=== PATIENT | male | born 1935 | race African-American/Black ===

== ENCOUNTER 2019-12-08 07:53 | Inpatient (IN) | payer MEDICARE ==
[~2019-12-08] VITALS: Ht 185.4 cm; Wt 81.6 kg
[2019-12-08 09:43] LABS: HEMATOCRIT. 33.1 % (42.0-52.0); HEMOGLOBIN. 11.4 g/dL (14.0-18.0); MEAN CORPUSCULAR HEMOGLOBIN 30.9 pg (28.0-32.0); MEAN CORPUSCULAR VOLUME 89.6 fL (80.0-94.0); PLATELET 168 x1000/uL (130-400); RED BLOOD CELL COUNT 3.69 mill/uL (4.7-6.1); RED CELL DISTRIBUTION WIDTH 15.6 % (11.6-14.6)
[2019-12-08 09:48] LABS: CHLORIDE 114 mEq/L (98-107)
[2019-12-08 09:50] LABS: INR 1.1; PROTHROMBIN TIME 12.2 sec (9.6-11.0)
[2019-12-08] MEDS ORDERED: ONDANSETRON HCL 4MG/2ML INJ IV ONE (10:00)
[2019-12-08] MEDS ORDERED: MORPHINE SULFATE 2 MG/ML CPJ (NOT FOR IM USE) IV ONE (10:00)
[2019-12-08 10:23] LABS: PLATELET ESTIMATE NORMAL
[2019-12-08 12:14] LABS: CLARITY URINE CLEAR (CLEAR); COLOR URINE YELLOW (YELLOW); KETONES URINE NEGATIVE (NEGATIVE); LEUKOCYTE ESTERASE URINE NEGATIVE (NEGATIVE); NITRITE URINE NEGATIVE (NEGATIVE); OCCULT BLOOD URINE 1+ (NEGATIVE); PROTEIN URINE 2+ (NEGATIVE); SPECIFIC GRAVITY URINE 1.016 (1.005-1.030)
[2019-12-08] MEDS: MORPHINE SULFATE 2 MG/ML CPJ (NOT FOR IM USE) IV PRN (15:06)
[2019-12-08] MEDS: ONDANSETRON HCL 4MG/2ML INJ IV PRN (15:06)
[2019-12-08] MEDS: ENOXAPARIN 30MG/0.3ML SYR SUBCUT SCH (15:06)
[2019-12-08 15:27] VITALS: BP 103/82
[2019-12-08 16:00] VITALS: BP 153/48
[2019-12-08 20:00] VITALS: BP 162/53
[2019-12-08] MEDS: CLONIDINE 0.1MG TABLET PO PRN (23:18)
[2019-12-09] VITALS: BP 153/52
[2019-12-09 04:00] VITALS: BP 158/48
[2019-12-09 08:00] VITALS: BP 155/48
[2019-12-09] MEDS: MORPHINE SULFATE 2 MG/ML CPJ (NOT FOR IM USE) IV PRN ×2 (08:24→17:26)
[2019-12-09] MEDS: ONDANSETRON HCL 4MG/2ML INJ IV PRN ×2 (08:24→17:26)
[2019-12-09] MEDS: AMLODIPINE 10MG TABLET PO SCH (08:25)
[2019-12-09 10:57] LABS: T4 FREE 1.13 ng/dL (0.76-1.46)
[2019-12-09 12:00] VITALS: BP 145/48
[2019-12-09 16:00] VITALS: BP 163/50
[2019-12-09 16:52] LABS: CREATINE KINASE 200 IU/L (39-308); CREATINE KINASE MB FRACTION < 1.0 ng/mL (0.5-3.6)
[2019-12-09] MEDS: ENOXAPARIN 30MG/0.3ML SYR SUBCUT SCH (17:26)
[2019-12-09 20:00] VITALS: BP 153/52
[2019-12-10] VITALS: BP 158/55
[2019-12-10 04:00] VITALS: BP 167/55
[2019-12-10 06:08] LABS: BASOPHILS % 0.5 % (0.0-2.0); EOSINOPHILS % 2.8 % (0.0-5.0); HEMATOCRIT. 34.4 % (42.0-52.0); HEMOGLOBIN. 11.6 g/dL (14.0-18.0); LYMPHOCYTES % 7.6 % (20.0-50.0); MEAN CORPUSCULAR HEMOGLOBIN 30.5 pg (28.0-32.0); MEAN CORPUSCULAR VOLUME 90.4 fL (80.0-94.0); MONOCYTES % 11.8 % (2.0-8.0); NEUTROPHILS % 77.3 % (40.0-76.0); PLATELET 146 x1000/uL (130-400); RED BLOOD CELL COUNT 3.81 mill/uL (4.7-6.1); RED CELL DISTRIBUTION WIDTH 15.4 % (11.6-14.6)
[2019-12-10] MEDS: CLONIDINE 0.1MG TABLET PO PRN (06:40)
[2019-12-10 06:58] LABS: CHLORIDE 111 mEq/L (98-107)
[2019-12-10 07:12] LABS: CREATINE KINASE 280 IU/L (39-308)
[2019-12-10 07:17] LABS: CREATINE KINASE MB FRACTION < 1.0 ng/mL (0.5-3.6)
[2019-12-10 08:00] VITALS: BP 152/40
[2019-12-10] MEDS: AMLODIPINE 10MG TABLET PO SCH (10:01)
[2019-12-10 12:00] VITALS: BP 158/70
[2019-12-10 16:00] VITALS: BP 148/55
[2019-12-10] MEDS: ENOXAPARIN 30MG/0.3ML SYR SUBCUT SCH (16:38)
[2019-12-10 17:25] LABS: CREATINE KINASE 335 IU/L (39-308)
[2019-12-10 17:26] LABS: CREATINE KINASE MB FRACTION < 1.0 ng/mL (0.5-3.6)
[2019-12-10 20:00] VITALS: BP 141/42
[2019-12-10] MEDS: MORPHINE SULFATE 2 MG/ML CPJ (NOT FOR IM USE) IV PRN (22:10)
[2019-12-10] MEDS: DEXT 5%/0.9% NACL 1,000 ML IV SCH (23:27)
[2019-12-11] VITALS: BP 139/40
[2019-12-11 04:00] VITALS: BP 153/53
[2019-12-11] MEDS: AMLODIPINE 10MG TABLET PO SCH (08:26)
[2019-12-11] MEDS: DEXT 5%/0.9% NACL 1,000 ML IV SCH (12:30)
[2019-12-11] MEDS ORDERED: EPINEPHRINE 1:1000 1 MG/ML AMP ONE (12:51)
[2019-12-11] MEDS ORDERED: MORPHINE SULFATE/PF 1MG/ML 10ML AMP ONE (12:51)
[2019-12-11] MEDS ORDERED: KETOROLAC 30MG/ML VIAL ONE (12:52)
[2019-12-11] MEDS ORDERED: ROPIVACAINE HCL 10MG/ML 20 ML VIAL EPI ONE (12:52)
[2019-12-11] MEDS ORDERED: BACITRACIN 50,000 UNITS/VIAL ONE (12:53)
[2019-12-11] MEDS ORDERED: VANCOMYCIN HCL 1 GM/VIAL ONE (12:53)
[2019-12-11] MEDS ORDERED: TRANEXAMIC ACID 1,000 MG in SODIUM CHLORIDE 0.9% 100 ML IV NR ×2 (13:07→14:00)
[2019-12-11] MEDS ORDERED: FENTANYL CITRATE/PF 50MCG/ML 2ML VIAL ONE (13:26)
[2019-12-11] MEDS ORDERED: MIDAZOLAM HCL 2 MG/2 ML VIAL ONE (13:27)
[2019-12-11] MEDS ORDERED: PROPOFOL 10MG/ML 100ML 0 ML IV ONE (14:11)
[2019-12-11] MEDS ORDERED: PROPOFOL 200MG/20ML VIAL IV ONE (14:15)
[2019-12-11] MEDS ORDERED: ROCURONIUM BROMIDE 10MG/ML VIAL 5ML IV ONE (14:16)
[2019-12-11] MEDS ORDERED: CEFAZOLIN SODIUM 1000MG/VIAL ONE (14:31)
[2019-12-11] MEDS ORDERED: ONDANSETRON HCL 4MG/2ML INJ ONE (16:26)
[2019-12-11] MEDS ORDERED: METOCLOPRAMIDE HCL 10MG/2ML VIAL ONE (16:26)
[2019-12-11] MEDS ORDERED: HYDROCODONE/ACETAMINOPHEN 10/325MG TABLET PO PRN (16:45)
[2019-12-11] MEDS ORDERED: HYDROCODONE/ACETAMINOPHEN 5/325MG TABLET PO PRN (16:45)
[2019-12-11] MEDS ORDERED: ACETAMINOPHEN 325MG TABLET PO PRN (16:45)
[2019-12-11] MEDS ORDERED: KETOROLAC 30MG/ML VIAL IV PRN (16:45)
[2019-12-11] MEDS ORDERED: ONDANSETRON HCL 4MG/2ML INJ IV PRN ×2 (16:45→17:00)
[2019-12-11] MEDS ORDERED: CEFAZOLIN 1000MG PREMIX 50 ML IV NR ×2 (17:00→20:00)
[2019-12-11] MEDS ORDERED: SODIUM CHLORIDE 0.9% 1,000 ML IV ONE (17:00)
[2019-12-11] MEDS: ASPIRIN 325MG EC TABLET PO SCH (17:00)
[2019-12-11] MEDS: SENNOSIDES/DOCUSATE SOD 8.6/50MG TABLET PO SCH (17:00)
[2019-12-11] MEDS ORDERED: MORPHINE SULFATE 2 MG/ML CPJ (NOT FOR IM USE) IV PRN (17:00)
[2019-12-11] MEDS ORDERED: HYDROMORPHONE HCL/PF 2MG/ML CPJ IV PRN (17:00)
[2019-12-11 20:00] VITALS: BP 144/50
[2019-12-11] MEDS: METOCLOPRAMIDE HCL 10MG/2ML VIAL IV SCH (22:21)
[2019-12-11] MEDS: CEFAZOLIN 1000MG PREMIX 50 ML IV SCH (22:21)
[2019-12-12] VITALS: BP 148/39
[2019-12-12 04:00] VITALS: BP 134/44
[2019-12-12] MEDS: METOCLOPRAMIDE HCL 10MG/2ML VIAL IV SCH ×3 (05:27→21:13)
[2019-12-12] MEDS: CEFAZOLIN 1000MG PREMIX 50 ML IV SCH ×2 (05:27→13:20)
[2019-12-12] MEDS: MORPHINE SULFATE 2 MG/ML CPJ (NOT FOR IM USE) IV PRN ×2 (06:36→17:33)
[2019-12-12 08:00] VITALS: BP 135/42
[2019-12-12] MEDS: ASPIRIN 325MG EC TABLET PO SCH ×2 (09:24→17:16)
[2019-12-12] MEDS: AMLODIPINE 10MG TABLET PO SCH (09:24)
[2019-12-12] MEDS: SENNOSIDES/DOCUSATE SOD 8.6/50MG TABLET PO SCH ×2 (09:24→17:16)
[2019-12-12 12:00] VITALS: BP 120/56
[2019-12-12] MEDS ORDERED: ENOXAPARIN 40MG/0.4ML SYR SUBCUT SCH (13:00)
[2019-12-12 16:00] VITALS: BP 129/32
[2019-12-12 20:00] VITALS: BP 134/42
[2019-12-13] VITALS (7 sets, daily range): BP systolic 112–148; BP diastolic 34–52
[2019-12-13] MEDS: METOCLOPRAMIDE HCL 10MG/2ML VIAL IV SCH ×3 (05:31→21:10)
[2019-12-13] MEDS: AMLODIPINE 10MG TABLET PO SCH (10:24)
[2019-12-13] MEDS: ASPIRIN 325MG EC TABLET PO SCH ×2 (10:24→16:22)
[2019-12-13] MEDS: SENNOSIDES/DOCUSATE SOD 8.6/50MG TABLET PO SCH ×2 (10:24→16:22)
[2019-12-13] MEDS: MORPHINE SULFATE 2 MG/ML CPJ (NOT FOR IM USE) IV PRN (10:27)
[2019-12-13] MEDS: DEXT 5%/0.9% NACL 1,000 ML IV SCH (14:44)
[2019-12-13] MEDS ORDERED: BISACODYL 5MG TABLET PO PRN (16:15)
[2019-12-13] MEDS ORDERED: AMLO10TA80 PO (20:15)
[2019-12-13] MEDS ORDERED: ASPI325T85 PO (20:15)
== END 2019-12-13 21:52 | DRG 470 ==
LOC: ER 07:53 → 6EST 11:54 → EDBEDREQTM 11:58 → EDBEDREQ 11:58 → ENRESERV 13:28
PROVIDERS: ADMIT Family Medicine; ATTEND Family Medicine
PROC: 0SRB0JZ Replacement of Left Hip Joint with Synthetic Substitute, Open Approach (ICD-10-PCS; principal; 2019-12-11)
DX: S72.012A Unspecified intracapsular fracture of left femur, initial encounter for closed fracture (principal); E78.5 Hyperlipidemia, unspecified; I11.9 Hypertensive heart disease without heart failure; I25.10 Atherosclerotic heart disease of native coronary artery without angina pectoris; D64.9 Anemia, unspecified; W18.39XA Other fall on same level, initial encounter; M16.12 Unilateral primary osteoarthritis, left hip; Z86.73 Personal history of transient ischemic attack (TIA), and cerebral infarction without residual deficits; Z95.0 Presence of cardiac pacemaker; Z95.1 Presence of aortocoronary bypass graft; Y93.89 Activity, other specified; Y92.89 Other specified places as the place of occurrence of the external cause; Y99.8 Other external cause status
CPT/HCPCS: 36415; 70486; 71045; 72170; 72192; 73501; 73552; 76000; 80048; 80053; 80061; 81003; 82550; 82553; 83036; 83880; 84439; 84443; 84484; 85025; 85379; 86850; 86900; 88305; 88311; 93005; 93306; 96374; 97110; 97116; 97162; 97530; 99285; J0690; J1650; J1885; J2250; J2270; J2274; J2405; J2704; J2765; J2795; J3010; J3370; J3490; J7042; J7050

== ENCOUNTER 2019-12-13 21:50 | Inpatient (IN) | payer MEDICARE ==
[~2019-12-13] VITALS: Ht 185.2 cm; Wt 81.7 kg
[2019-12-13 21:50] VITALS: BP 123/61
[~2019-12-13 21:50] MED LIST: AMLO10TA80 PO; ASPI325T85 PO
[2019-12-13] MEDS ORDERED: HYDROCODONE/ACETAMINOPHEN 10/325MG TABLET PO PRN (23:30)
[2019-12-13] MEDS ORDERED: POTASSIUM CHLORIDE INJ 40 MEQ in DEXT 5%/0.9% NACL 1,000 ML IV SCH (23:30)
[2019-12-13] MEDS ORDERED: BISACODYL 5MG TABLET PO PRN (23:30)
[2019-12-13] MEDS ORDERED: CLONIDINE 0.1MG TABLET PO PRN (23:30)
[2019-12-13] MEDS ORDERED: HYDROCODONE/ACETAMINOPHEN 5/325MG TABLET PO PRN (23:30)
[2019-12-13] MEDS ORDERED: ONDANSETRON HCL 4MG/2ML INJ IV PRN (23:30)
[2019-12-14] MEDS: METOCLOPRAMIDE HCL 10MG TABLET PO SCH ×4 (00:59→23:47)
[2019-12-14] MEDS ORDERED: DEXT 5%/0.9% NACL 1,000 ML IV SCH (01:30)
[2019-12-14] MEDS: DEXT 5%/0.9% NACL 1,000 ML IV SCH ×2 (02:00→14:30)
[2019-12-14 08:30] VITALS: BP 146/53
[2019-12-14] MEDS: AMLODIPINE 10MG TABLET PO SCH (08:50)
[2019-12-14] MEDS: ASPIRIN 325MG EC TABLET PO SCH ×2 (08:50→17:57)
[2019-12-14] MEDS: SENNOSIDES/DOCUSATE SOD 8.6/50MG TABLET PO SCH ×2 (08:50→17:57)
[2019-12-14] MEDS ORDERED: NA PHOS,M-B/NA PHOS,DI-BA ENEMA 118ML PR PRN (16:15)
[2019-12-14] MEDS: DOCUSATE SODIUM 100MG CAPSULE PO SCH (17:57)
[2019-12-14] MEDS: LACTULOSE 20G/30ML UDC PO SCH ×3 (17:57→23:47)
[2019-12-14 20:00] VITALS: BP_SYST 119; BP_SYST 126; BP_DIAS 32; BP_DIAS 51
[2019-12-14 20:44] LABS: BASOPHILS % 0.3 % (0.0-2.0); EOSINOPHILS % 2.1 % (0.0-5.0); HEMATOCRIT. 23.7 % (42.0-52.0); HEMOGLOBIN. 8.1 g/dL (14.0-18.0); LYMPHOCYTES % 7.1 % (20.0-50.0); MEAN CORPUSCULAR HEMOGLOBIN 30.1 pg (28.0-32.0); MEAN CORPUSCULAR VOLUME 88.5 fL (80.0-94.0); MEAN PLATELET VOLUME 7.6 fl (7.4-10.4); MONOCYTES % 9.9 % (2.0-8.0); NEUTROPHILS % 80.6 % (40.0-76.0); PLATELET 191 x1000/uL (130-400); RED BLOOD CELL COUNT 2.67 mill/uL (4.7-6.1); RED CELL DISTRIBUTION WIDTH 15.3 % (11.6-14.6)
[2019-12-14 20:48] LABS: CHLORIDE 109 mEq/L (98-107)
[2019-12-14] MEDS: ENOXAPARIN 30MG/0.3ML SYR SUBCUT SCH (23:47)
[2019-12-14] MEDS: ACETAMINOPHEN 325MG TABLET PO PRN (23:47)
[2019-12-15] MEDS: DEXT 5%/0.9% NACL 1,000 ML IV SCH ×2 (03:07→15:30)
[2019-12-15 08:03] VITALS: BP 143/48
[2019-12-15] MEDS: METOCLOPRAMIDE HCL 10MG TABLET PO SCH ×2 (08:57→17:07)
[2019-12-15] MEDS: SENNOSIDES/DOCUSATE SOD 8.6/50MG TABLET PO SCH ×2 (08:57→17:00)
[2019-12-15] MEDS: DOCUSATE SODIUM 100MG CAPSULE PO SCH ×2 (08:57→17:00)
[2019-12-15] MEDS: AMLODIPINE 10MG TABLET PO SCH (08:57)
[2019-12-15 15:15] VITALS: BP 130/41
[2019-12-15 17:03] LABS: CHLORIDE 110 mEq/L (98-107)
[2019-12-15 17:42] LABS: HEMATOCRIT. 22.2 % (42.0-52.0); HEMOGLOBIN. 7.7 g/dL (14.0-18.0); MEAN CORPUSCULAR HEMOGLOBIN 31.1 pg (28.0-32.0); MEAN CORPUSCULAR VOLUME 89.6 fL (80.0-94.0); MEAN PLATELET VOLUME 7.8 fl (7.4-10.4); PLATELET 221 x1000/uL (130-400); RED BLOOD CELL COUNT 2.48 mill/uL (4.7-6.1); RED CELL DISTRIBUTION WIDTH 14.9 % (11.6-14.6)
[2019-12-15 20:00] VITALS: BP 115/55
[2019-12-15 20:45] LABS: PLATELET ESTIMATE NORMAL
[2019-12-15] MEDS: ENOXAPARIN 30MG/0.3ML SYR SUBCUT SCH (20:45)
[2019-12-15] MEDS: HYDROCODONE/ACETAMINOPHEN 5/325MG TABLET PO PRN (23:14)
[2019-12-16] MEDS: DEXT 5%/0.9% NACL 1,000 ML IV SCH ×2 (04:26→15:32)
[2019-12-16 07:39] LABS: VITAMIN B12 SERUM 1413 pg/mL (211-911)
[2019-12-16] MEDS: DOCUSATE SODIUM 100MG CAPSULE PO SCH ×2 (09:00→16:49)
[2019-12-16] MEDS: SENNOSIDES/DOCUSATE SOD 8.6/50MG TABLET PO SCH ×2 (09:00→16:50)
[2019-12-16 09:17] VITALS: BP 133/40
[2019-12-16] MEDS: AMLODIPINE 10MG TABLET PO SCH (09:34)
[2019-12-16] MEDS: METOCLOPRAMIDE HCL 10MG TABLET PO SCH ×4 (09:34→23:57)
[2019-12-16] MEDS: HYDROCODONE/ACETAMINOPHEN 5/325MG TABLET PO PRN (09:46)
[2019-12-16 20:00] VITALS: BP 141/46
[2019-12-16] MEDS: ENOXAPARIN 30MG/0.3ML SYR SUBCUT SCH (21:34)
[2019-12-17] MEDS: DEXT 5%/0.9% NACL 1,000 ML IV SCH ×2 (04:21→17:56)
[2019-12-17] MEDS: ACETAMINOPHEN 325MG TABLET PO PRN ×2 (04:29→23:43)
[2019-12-17 08:00] VITALS: BP 136/45
[2019-12-17] MEDS: DOCUSATE SODIUM 100MG CAPSULE PO SCH ×2 (08:56→17:56)
[2019-12-17] MEDS: METOCLOPRAMIDE HCL 10MG TABLET PO SCH ×3 (08:56→23:38)
[2019-12-17] MEDS: SENNOSIDES/DOCUSATE SOD 8.6/50MG TABLET PO SCH ×2 (08:56→17:56)
[2019-12-17] MEDS: AMLODIPINE 10MG TABLET PO SCH (08:56)
[2019-12-17] MEDS: HYDROCODONE/ACETAMINOPHEN 5/325MG TABLET PO PRN (09:27)
[2019-12-17 20:00] VITALS: BP 109/83
[2019-12-17] MEDS: ENOXAPARIN 30MG/0.3ML SYR SUBCUT SCH ×2 (20:58→21:00)
[2019-12-18] MEDS: DEXT 5%/0.9% NACL 1,000 ML IV SCH ×2 (05:56→18:19)
[2019-12-18] MEDS: HYDROCODONE/ACETAMINOPHEN 5/325MG TABLET PO PRN ×2 (05:57→20:32)
[2019-12-18 08:00] VITALS: BP 130/33
[2019-12-18] MEDS: SENNOSIDES/DOCUSATE SOD 8.6/50MG TABLET PO SCH ×2 (09:25→17:08)
[2019-12-18] MEDS: DOCUSATE SODIUM 100MG CAPSULE PO SCH ×2 (09:25→17:08)
[2019-12-18] MEDS: METOCLOPRAMIDE HCL 10MG TABLET PO SCH ×2 (09:26→15:26)
[2019-12-18] MEDS: AMLODIPINE 10MG TABLET PO SCH (09:26)
[2019-12-18 20:00] VITALS: BP 129/40
[2019-12-18] MEDS: ENOXAPARIN 30MG/0.3ML SYR SUBCUT SCH (20:31)
[2019-12-19] MEDS: ACETAMINOPHEN 325MG TABLET PO PRN (00:27)
[2019-12-19] MEDS: BISACODYL 5MG TABLET PO PRN (05:35)
[2019-12-19] MEDS: HYDROCODONE/ACETAMINOPHEN 5/325MG TABLET PO PRN ×2 (05:36→20:51)
[2019-12-19] MEDS: DEXT 5%/0.9% NACL 1,000 ML IV SCH ×2 (06:06→19:31)
[2019-12-19] MEDS: METOCLOPRAMIDE HCL 10MG TABLET PO SCH ×3 (08:19→16:05)
[2019-12-19] MEDS: DOCUSATE SODIUM 100MG CAPSULE PO SCH ×2 (08:20→16:05)
[2019-12-19] MEDS: SENNOSIDES/DOCUSATE SOD 8.6/50MG TABLET PO SCH ×2 (08:20→16:05)
[2019-12-19] MEDS: AMLODIPINE 10MG TABLET PO SCH (08:21)
[2019-12-19 08:24] VITALS: BP 124/75
[2019-12-19 20:00] VITALS: BP 122/80
[2019-12-19] MEDS: ENOXAPARIN 30MG/0.3ML SYR SUBCUT SCH (20:55)
[2019-12-20] MEDS: HYDROCODONE/ACETAMINOPHEN 5/325MG TABLET PO PRN ×2 (06:40→18:16)
[2019-12-20] MEDS: DEXT 5%/0.9% NACL 1,000 ML IV SCH ×2 (08:00→20:42)
[2019-12-20 08:01] VITALS: BP 152/43
[2019-12-20] MEDS: AMLODIPINE 10MG TABLET PO SCH (08:46)
[2019-12-20] MEDS: SENNOSIDES/DOCUSATE SOD 8.6/50MG TABLET PO SCH ×2 (08:46→16:22)
[2019-12-20] MEDS: METOCLOPRAMIDE HCL 10MG TABLET PO SCH ×4 (08:46→23:58)
[2019-12-20] MEDS: DOCUSATE SODIUM 100MG CAPSULE PO SCH ×2 (08:46→16:22)
[2019-12-20] MEDS: BISACODYL 5MG TABLET PO PRN (16:22)
[2019-12-20 20:00] VITALS: BP 133/36
[2019-12-20] MEDS: ENOXAPARIN 30MG/0.3ML SYR SUBCUT SCH (20:42)
[2019-12-21] MEDS: HYDROCODONE/ACETAMINOPHEN 5/325MG TABLET PO PRN ×2 (06:57→09:34)
[2019-12-21 08:08] VITALS: BP 140/38
[2019-12-21] MEDS: AMLODIPINE 10MG TABLET PO SCH (09:27)
[2019-12-21] MEDS: METOCLOPRAMIDE HCL 10MG TABLET PO SCH ×3 (09:28→23:27)
[2019-12-21] MEDS: SENNOSIDES/DOCUSATE SOD 8.6/50MG TABLET PO SCH ×2 (09:28→16:38)
[2019-12-21] MEDS: DOCUSATE SODIUM 100MG CAPSULE PO SCH ×2 (09:28→16:38)
[2019-12-21] MEDS: DEXT 5%/0.9% NACL 1,000 ML IV SCH ×2 (09:32→20:47)
[2019-12-21 20:00] VITALS: BP 128/60
[2019-12-21] MEDS: ENOXAPARIN 30MG/0.3ML SYR SUBCUT SCH (20:47)
[2019-12-22] MEDS: HYDROCODONE/ACETAMINOPHEN 5/325MG TABLET PO PRN (06:14)
[2019-12-22 08:00] VITALS: BP 135/51
[2019-12-22] MEDS: METOCLOPRAMIDE HCL 10MG TABLET PO SCH ×4 (08:00→23:50)
[2019-12-22] MEDS: SENNOSIDES/DOCUSATE SOD 8.6/50MG TABLET PO SCH ×3 (09:00→17:25)
[2019-12-22] MEDS: DOCUSATE SODIUM 100MG CAPSULE PO SCH ×3 (09:00→17:25)
[2019-12-22] MEDS: AMLODIPINE 10MG TABLET PO SCH (09:41)
[2019-12-22] MEDS: DEXT 5%/0.9% NACL 1,000 ML IV SCH ×2 (10:00→21:38)
[2019-12-22 20:00] VITALS: BP 97/41
[2019-12-22] MEDS: ENOXAPARIN 30MG/0.3ML SYR SUBCUT SCH (21:08)
[2019-12-23 06:29] LABS: HEMATOCRIT. 23.1 % (42.0-52.0); HEMOGLOBIN. 8.1 g/dL (14.0-18.0); MEAN CORPUSCULAR HEMOGLOBIN 31.4 pg (28.0-32.0); MEAN PLATELET VOLUME 6.9 fl (7.4-10.4); PLATELET 263 x1000/uL (130-400); RED BLOOD CELL COUNT 2.57 mill/uL (4.7-6.1); RED CELL DISTRIBUTION WIDTH 16.1 % (11.6-14.6)
[2019-12-23 07:31] LABS: CHLORIDE 117 mEq/L (98-107)
[2019-12-23 08:00] VITALS: BP 138/44
[2019-12-23 08:12] LABS: CLARITY URINE CLEAR (CLEAR); COLOR URINE YELLOW (YELLOW); KETONES URINE NEGATIVE (NEGATIVE); LEUKOCYTE ESTERASE URINE NEGATIVE (NEGATIVE); NITRITE URINE NEGATIVE (NEGATIVE); OCCULT BLOOD URINE NEGATIVE (NEGATIVE); PROTEIN URINE NEGATIVE (NEGATIVE); SPECIFIC GRAVITY URINE 1.016 (1.005-1.030)
[2019-12-23] MEDS: DOCUSATE SODIUM 100MG CAPSULE PO SCH ×2 (09:23→16:34)
[2019-12-23] MEDS: SENNOSIDES/DOCUSATE SOD 8.6/50MG TABLET PO SCH ×2 (09:23→16:34)
[2019-12-23] MEDS: METOCLOPRAMIDE HCL 10MG TABLET PO SCH ×2 (09:23→16:34)
[2019-12-23] MEDS: AMLODIPINE 10MG TABLET PO SCH (09:24)
[2019-12-23 10:14] LABS: PLATELET ESTIMATE NORMAL
[2019-12-23] MEDS: DEXT 5%/0.9% NACL 1,000 ML IV SCH (11:37)
[2019-12-23 20:00] VITALS: BP 130/45
[2019-12-23] MEDS: ENOXAPARIN 30MG/0.3ML SYR SUBCUT SCH (21:27)
[2019-12-24] MEDS: DEXT 5%/0.9% NACL 1,000 ML IV SCH ×2 (00:31→12:39)
[2019-12-24] MEDS: METOCLOPRAMIDE HCL 10MG TABLET PO SCH ×3 (00:31→17:22)
[2019-12-24 08:19] VITALS: BP 144/47
[2019-12-24] MEDS: SENNOSIDES/DOCUSATE SOD 8.6/50MG TABLET PO SCH ×2 (09:00→17:22)
[2019-12-24] MEDS: DOCUSATE SODIUM 100MG CAPSULE PO SCH ×2 (09:00→17:21)
[2019-12-24] MEDS: AMLODIPINE 10MG TABLET PO SCH (09:00)
[2019-12-24] MEDS: BISACODYL 5MG TABLET PO PRN (13:28)
[2019-12-24] MEDS: HYDROCODONE/ACETAMINOPHEN 5/325MG TABLET PO PRN (22:05)
[2019-12-24] MEDS: ENOXAPARIN 30MG/0.3ML SYR SUBCUT SCH (22:29)
[2019-12-25] MEDS: DEXT 5%/0.9% NACL 1,000 ML IV SCH ×2 (06:12→12:25)
[2019-12-25 09:00] VITALS: BP 136/40
[2019-12-25] MEDS: BISACODYL 5MG TABLET PO PRN (09:12)
[2019-12-25] MEDS: AMLODIPINE 10MG TABLET PO SCH (09:13)
[2019-12-25] MEDS: METOCLOPRAMIDE HCL 10MG TABLET PO SCH ×4 (09:13→15:36)
[2019-12-25] MEDS: SENNOSIDES/DOCUSATE SOD 8.6/50MG TABLET PO SCH ×2 (09:13→17:00)
[2019-12-25] MEDS: DOCUSATE SODIUM 100MG CAPSULE PO SCH ×2 (09:13→17:00)
[2019-12-25 20:00] VITALS: BP 148/46
[2019-12-25] MEDS: ACETAMINOPHEN 325MG TABLET PO PRN (20:11)
[2019-12-25] MEDS: ENOXAPARIN 30MG/0.3ML SYR SUBCUT SCH (21:13)
[2019-12-26] VITALS: BP 165/74
[2019-12-26] MEDS: METOCLOPRAMIDE HCL 10MG TABLET PO SCH ×2 (00:06→09:10)
[2019-12-26] MEDS: HYDROCODONE/ACETAMINOPHEN 5/325MG TABLET PO PRN ×2 (00:07→09:11)
[2019-12-26] MEDS: DEXT 5%/0.9% NACL 1,000 ML IV SCH (01:30)
[2019-12-26] MEDS: ACETAMINOPHEN 325MG TABLET PO PRN (06:02)
[2019-12-26] MEDS: BISACODYL 5MG TABLET PO PRN (06:07)
[2019-12-26 08:00] VITALS: BP 148/46
[2019-12-26] MEDS: SENNOSIDES/DOCUSATE SOD 8.6/50MG TABLET PO SCH (09:10)
[2019-12-26] MEDS: DOCUSATE SODIUM 100MG CAPSULE PO SCH (09:10)
[2019-12-26] MEDS: AMLODIPINE 10MG TABLET PO SCH (09:11)
[2019-12-26 12:22] VITALS: BP 148/46
== END 2019-12-26 14:37 | disposition home health service (06) | DRG 536 ==
PROVIDERS: ADMIT Psychiatry & Neurology Neurology; ATTEND Family Medicine
PROC: 4A10X4Z Monitoring of Central Nervous Electrical Activity, External Approach (ICD-10-PCS; principal; 2019-12-19)
DX: S72.002A Fracture of unspecified part of neck of left femur, initial encounter for closed fracture (principal); G93.40 Encephalopathy, unspecified; D64.9 Anemia, unspecified; E78.5 Hyperlipidemia, unspecified; I11.0 Hypertensive heart disease with heart failure; I25.10 Atherosclerotic heart disease of native coronary artery without angina pectoris; I50.9 Heart failure, unspecified; M25.78 Osteophyte, vertebrae; M47.9 Spondylosis, unspecified; M48.02 Spinal stenosis, cervical region; W18.39XA Other fall on same level, initial encounter; F03.90 Unspecified dementia, unspecified severity, without behavioral disturbance, psychotic disturbance, mood disturbance, and anxiety; S00.83XA Contusion of other part of head, initial encounter; Z95.1 Presence of aortocoronary bypass graft; Z95.0 Presence of cardiac pacemaker; Y93.89 Activity, other specified; Y92.89 Other specified places as the place of occurrence of the external cause; Y99.8 Other external cause status; Z86.73 Personal history of transient ischemic attack (TIA), and cerebral infarction without residual deficits; Z79.899 Other long term (current) drug therapy; Z79.82 Long term (current) use of aspirin; Z97.4 Presence of external hearing-aid
CPT/HCPCS: 36415; 80048; 80053; 81003; 82607; 84134; 84153; 84443; 85025; 92523; 92610; 93970; 97110; 97112; 97116; 97150; 97162; 97166; 97530; 97535; J1650; J7042; J8597; G0103